=== PATIENT | male | born 1955 | race Caucasian/White ===

== ENCOUNTER 2016-06-10 19:31 | Emergency (ER) | payer OTHER ==
[2016-06-10 19:42] VITALS: BP 148/104; PULSE 85; TEMP 98.1; BMI 27.2
[2016-06-10 20:12] LABS: URINE APPEARANCE CLEAR; URINE BILIRUBIN NEGATIVE (NEGATIVE); URINE BLOOD NEGATIVE (NEGATIVE); URINE COLOR LTYELLOW; URINE GLUCOSE (UA) NEGATIVE (NEGATIVE); URINE KETONE TRACE (NEGATIVE); URINE LEUK ESTERASE TRACE (NEGATIVE); URINE NITRITE NEGATIVE (NEGATIVE); URINE PROTEIN 1+ (NEGATIVE); URINE UROBILINOGEN NEGATIVE E.U./dl (0.2-1.0)
[2016-06-10 20:16] LABS: CALCIUM OXALATE CRYSTALS MODERATE /hpf (NONE SEEN); URINE HYALINE CAST 1 /lpf; URINE MUCUS RARE; URINE RBC <1 /hpf (0-3); URINE WBC 2 /hpf (3-5)
--- NOTE | 2016-06-10 20:29 | PDOC ---
History of Present Illness - General Chief Complaint: Pain, Acute Stated Complaint: PAIN, ACUTE Time Seen by Provider: 06/10/16 19:46 History Source: Patient Exam Limitations: No Limitations - History of Present Illness Initial Comments: 06/10/16 20:23 60yo Male Patient w/ PmHx: Diverticulitis, Renal Colic, DM presents to ED c/o left flank pain. Patient states this symptom is ongoing on a daily basis. "It comes and goes." Patient describes pain as a burning sensation from his back down the anterior aspect of his left leg. He also states some positions make it worse, and some better. He saw his PCP last week and was told to take Tylenol for pain. Patient works as a visiting nurse, and does a lot of commuting throughout the city. He denies n/v/d, fever, CP, Abd pain, Diff breathing, rash , or any other complaints at this time. PCP- Dr. Waters Occurred: reports: other (Ongoing- Worse today.) Severity: reports: mild Pain Location: reports: back Method of Injury: No: unknown, assault, direct blow, fall, motor vehicle crash, other Modifying Factors: improves with: pain medication Past History - Travel Traveled outside of the country in the last 30 days: No Close contact w/someone who was outside of country & ill: No - Past Medical History Allergies/Adverse Reactions: Allergies Allergy/AdvReac Type Severity Reaction Status Date / Time propofol Allergy Verified 06/10/16 19:38 Home Medications: Ambulatory Orders Cyclobenzaprine HCl [Flexeril 10 mg] 10 mg PO TID PRN #30 tablet 06/10/16 Lidocaine 5% Patch [Lidoderm Patch -] 1 patch TP DAILY #1 box 06/10/16 Tramadol HCl 50 mg PO Q8H PRN #9 tablet MDD 3 tabs 06/10/16 Diabetes: Yes Other medical history: kidney stones, diverticulitis - Surgical History Appendectomy: Yes - Psycho/Social/Smoking Cessation Hx Suicidal Ideation: No Smoking History: Never smoked Trauma Specific PMHX - Complaint Specific PMHX Arthritis: No Back Injury: No Neck Injury: No Hx Sacro Iliac Joint Dysfunction: No Review of Systems - Review of Systems Able to Perform ROS?: Yes Is the patient limited Vietnamese proficient: No Constitutional: No: Chills, Fever, Malaise, Night Sweats, Weakness HEENTM: No: Blurred Vision, Double Vision, Nose Congestion, Throat Pain, Difficulty Swallowing, Mouth Swelling Respiratory: No: Cough, Stridor, Wheezing Cardiac (ROS): No: Chest Pain, Lightheadedness, Palpitations, Syncope ABD/GI: No: Diarrhea, Nausea, Poor Appetite, Poor Fluid Intake, Vomiting : No: Burning, Dysuria, Discharge, Flank Pain, Hematuria Musculoskeletal: No: Back Pain Integumentary: No: Erythema, Rash Neurological: No: Headache, Paresthesia, Seizure, Weakness All Other Systems: Reviewed and Negative *Physical Exam - Vital Signs Last Vital Signs Temp Pulse Resp BP Pulse Ox 98.1 F 85 18 148/104 99 06/10/16 19:38 06/10/16 19:38 06/10/16 19:38 06/10/16 19:38 06/10/16 19:38 - Physical Exam General Appearance: Yes: Nourished, Appropriately Dressed. No: Apparent Distress, Mild Distress, Moderate Distress, Severe Distress HEENT: positive: EOMI, HERBERT, Normal ENT Inspection, Normal Voice, Symmetrical, TMs Normal, Pharynx Normal. negative: Pharyngeal Erythema, Tonsillar Exudate, Nasal Congestion, Rhinorrhea, TM Bulging, TM Dull, TM Erythema Neck: positive: Trachea midline, Supple. negative: Rigid, Decreased range of motion, Stridor, Lymphadenopathy (R), Lymphadenopathy (L) Respiratory/Chest: positive: Lungs Clear, Normal Breath Sounds. negative: Respiratory Distress, Accessory Muscle Use, Labored Respiration, Rapid RR, Decreased Breath Sounds, Stridor, Wheezing Cardiovascular: positive: Regular Rhythm, Regular Rate. negative: Edema, JVD, Murmur Gastrointestinal/Abdominal: positive: Normal Bowel Sounds, Soft. negative: Distended, Guarding, Rebound, Tenderness, Hernia Musculoskeletal: positive: Normal Inspection. negative: CVA Tenderness, Decreased Range of Motion, Muscle Spasm, Vertebral Tenderness Extremity: positive: Normal Capillary Refill, Normal Inspection, Normal Range of Motion. negative: Pedal Edema, Swelling, Calf Tenderness Integumentary: positive: Normal Color, Dry, Warm Neurologic: positive: circulation man II-XII NML intact, Fully Oriented, Alert, Normal Mood/ Affect, Motor Strength /5 ED Treatment Course - ADDITIONAL ORDERS Additional order review: Laboratory Results 06/10/16 19:40 Urine Color Ltyellow Urine Appearance Clear Urine pH 5.0 Ur Specific Mccamey 1.018 Urine Protein 1+ H Urine Glucose (UA) Negative Urine Ketones Trace H Urine Blood Negative Urine Nitrite Negative Urine Bilirubin Negative Urine Urobilinogen Negative Ur Leukocyte Esterase Trace H Urine RBC <1 Urine WBC 2 Calcium Oxalate Crystal Moderate Hyaline Casts 1 Urine Mucus Rare Progress Note - Progress Note Progress Note: Patient Search Multi-Patient Search Reports Drug Listing Designation My JAVIER Numbers Data Detail Level: Printer-Friendly View | Show Extended View Confidential Drug Utilization Report Search Terms: Reji Bertrand, 1955 Search Date: 06/10/2016 08:39:49 PM The Drug Utilization Report below displays all of the controlled substance prescriptions, if any, that your patient has filled in the last twelve months. The information displayed on this report is compiled from pharmacy submissions to the Department, and accurately reflects the information as submitted by the pharmacies. This report was requested by: Clayton Cavazos | Reference #: [id number] There are no results for the search terms that you entered. *DC/Admit/Observation/Transfer Diagnosis at time of Disposition: Back pain Qualifiers: Back pain location: low back pain Chronicity: acute Back pain laterality: left Sciatica presence: with sciatica Sciatica laterality: sciatica of left side Qualified Code(s): M54.42 - Lumbago with sciatica, left side - Discharge Dispostion Disposition: HOME Condition at time of disposition: Stable Admit: No - Prescriptions Prescriptions: Cyclobenzaprine HCl [Flexeril 10 mg] 10 mg PO TID PRN #30 tablet PRN Reason: Back Pain Lidocaine 5% Patch [Lidoderm Patch -] 1 patch TP DAILY #1 box Tramadol HCl 50 mg PO Q8H PRN #9 tablet MDD 3 tabs PRN Reason: Severe back pain - Referrals Referrals: STAFF,NOT ON [Primary Care Provider] - Dony Bethea MD [Staff Physician] - - Patient Instructions Printed Discharge Instructions: DI for Low Back Pain, Exercise May Reduce Risk of Low Back Pain Additional Instructions: FOLLOW UP WITH DR. BETHEA (ORTHOPEDIC) FOR FURTHER EVALUATION. TAKE MEDICATIONS PRESCRIBED. DO NOT DRIVE, DRINK ALCOHOL, OR OPERATE HEAVY MACHINERY WHILE TAKING TRAMADOL. APPLY WARM COMPRESS TO AFFECTED AREA NEEDED FOR COMFORT. RETURN IF ANY CONCERNS FOR FURTHER EVALUATION. Print Language: JAPANESE
== END 2016-06-10 20:53 | disposition home or self-care (01) ==
LOC: JER 19:31
DX: M54.42 Lumbago with sciatica, left side (principal); E11.9 Type 2 diabetes mellitus without complications
CPT/HCPCS: 81003; 81015; 99282-25

== ENCOUNTER 2019-05-03 19:20 | Emergency (ER) | payer OTHER ==
[2019-05-03 19:37] VITALS: BP 178/95; PULSE 101; TEMP 99.1; BMI 24.5
--- NOTE | 2019-05-03 21:01 | PDOC ---
History of Present Illness - General Chief Complaint: Pain Stated Complaint: MUSCLE PAIN/WEIGHT LOSS - History of Present Illness Initial Comments: The pt is a 63M w/ a history of HTN, NIDDM who presents for evaluation of 1 month of left sided chest pain and general aches. Also reports scratchy throat with generalized malaise. He states he was diagnosed with influenza 3 weeks ago. Was diagnosed with strep throat 2 weeks ago, took most of his abx but not all because he started to feel better. Additionally, he reports 15lbs weight loss over 2 months. He has been seen at another hospital and by his PCP for similar complaints. Pt has results showing neg HIV, GC/chlamydia, HCV. Pt states he has been trying to lose some weight but didn't think he'd lose this much this fast. Chest pain is left sided, intermittent, only associated with movement/strain but is not exertional or positional 05/03/19 21:01 Past History - Past Medical History Allergies/Adverse Reactions: Allergies Allergy/AdvReac Type Severity Reaction Status Date / Time propofol Allergy Verified 05/03/19 19:30 Home Medications: Ambulatory Orders Cyclobenzaprine HCl [Flexeril 10 mg] 10 mg PO TID PRN #30 tablet 06/10/16 Lidocaine 5% Patch [Lidoderm Patch -] 1 patch TP DAILY #1 box 06/10/16 Tramadol HCl 50 mg PO Q8H PRN #9 tablet MDD 3 tabs 06/10/16 COPD: No Diabetes: Yes HTN: Yes - Surgical History Appendectomy: Yes - Psycho Social/Smoking Cessation Hx Smoking History: Never smoked Review of Systems - Review of Systems Able to Perform ROS?: Yes Comments:: GENERAL/CONSTITUTIONAL: No fever or chills. No weakness HEAD, EYES, EARS, NOSE AND THROAT: No change in vision. No change in hearing CARDIOVASCULAR: +intermittent CP RESPIRATORY: Denies cough, hemoptysis GASTROINTESTINAL: No nausea, vomiting, diarrhea or constipation GENITOURINARY: No dysuria, frequency, or change in urination MUSCULOSKELETAL: +left chest wall pain; intermittent generalized aches SKIN: No rash NEUROLOGIC: No headache, vertigo, loss of consciousness, or change in strength/ sensation ENDOCRINE: No increased thirst. No abnormal weight change HEMATOLOGIC/LYMPHATIC: No anemia, easy bleeding, or history of blood clots ALLERGIC/IMMUNOLOGIC: No hives or skin allergy 05/03/19 21:01 Is the patient limited Spanish proficient: No *Physical Exam - Vital Signs Last Vital Signs Temp Pulse Resp BP Pulse Ox 99.1 F 101 H 18 178/95 H 99 05/03/19 19:28 05/03/19 19:28 05/03/19 19:28 05/03/19 19:28 05/03/19 19:28 - Physical Exam GENERAL: Awake, alert, and oriented to person/place/time, in no acute distress HEAD: No signs of trauma, normocephalic, atraumatic EYES: PERRLA, EOMI, sclera anicteric, conjunctiva clear ENT: Hearing grossly normal, nares patent, oropharynx clear without exudates. Moist mucosa LUNGS: No distress, speaks in full sentences, clear to auscultation bilaterally CHEST: No chest wall TTP, no rash HEART: Regular rate and rhythm, normal S1 and S2, no murmurs appreciated, peripheral pulses normal and equal bilaterally ABDOMEN: Soft, nontender, normoactive bowel sounds. No guarding, no rebound. EXTREMITIES: Normal inspection, Normal range of motion, no edema. No clubbing or cyanosis NEUROLOGICAL: Cranial nerves II through XII grossly intact. Normal speech, normal gait, no focal sensorimotor deficits SKIN: Warm, Dry 05/03/19 21:01 Heart Score/ECG Review - History History: Slightly suspicious - Electrocardiogram EKG: Normal - Age Age: 45-65 - Risk Factors Risk Factors Heart Score: Yes Hx Hypertension, Yes Hx Diabetes Based on the list above the patient has:: 1-2 risk factors - Troponin Troponin: </= normal limit - Score Heart Score - Total: 2 ED Treatment Course - LABORATORY CBC & Chemistry Diagram: 05/03/19 21:38 05/03/19 21:38 Medical Decision Making - Medical Decision Making The pt is a 63M w/ a history of HTN, NIDDM who presents for evaluation of 1 month of generalized aches, sore throat, CP ED Course CMP, CBC, Trop I ECG CXR ECG w/ NSR; HR 99; QTc 441; no axis deviation; no JUNAID 05/03/19 22:20 Trop I neg CK wnl Lytes unremarkable No AHSAN LFTs wnl CXR w/o acute pathology, ED faculty read No anemia Repeat HR and O2 99 and 98% respectively Leukocytosis noted -Pt denies any infectious symptoms -Recent w/u including HIV, GC/chlamydia, syphilis provided by pt -Recent labs at [facility] -Pt a febrile Plan for D/C w/ PCP f/u Need for f/u and possible further w/u emphasized Discharge instructions and return precautions given Patient in agreement and verbalized understanding Dispo: Home 05/03/19 23:18 Discharge - Discharge Information Problems reviewed: Yes Clinical Impression/Diagnosis: Chest pain Qualifiers: Chest pain type: unspecified Qualified Code(s): R07.9 - Chest pain, unspecified Leukocytosis Qualifiers: Leukocytosis type: unspecified Qualified Code(s): D72.829 - Elevated white blood cell count, unspecified Condition: Stable Disposition: HOME - Admission No - Follow up/Referral Referrals: ON STAFF,NOT [Primary Care Provider] - [facility] [place] [Provider Group] - Patient Discharge Instructions Patient Printed Discharge Instructions: DI for Chest Pain, DI for Leukocytosis Additional Instructions: You were seen in the Emergency Department for evaluation. Your labs were notable for a elevated white blood cell count. Your other labs and imaging were unremarkable. Take your labs results to your primary care physician. Follow up with them within a week. Review the handout provided at discharge. For pain you may take Tylenol 650mg every 6 hours and Ibuprofen 600mg every 6-8 hours, alternating them each time. Return to the Emergency Department if you develop fevers, changing/worsening chest pain, trouble breathing, worsening pain, change in sensation, worsening symptoms, or any new/concerning symptoms. - Post Discharge Activity Work/Back to School Note: Back to Work
[2019-05-03] MEDS ORDERED: ACETAMINOPHEN 325 MG TABLET (FP) PO ONE (21:26)
[2019-05-03] MEDS ORDERED: LIDOCAINE 5% TOPICAL PATCH TP ONE (21:26)
--- NOTE | 2019-05-03 21:34 | PDOC ---
Attending Attestation - Resident Resident Name: Toby Ann - ED Attending Attestation I have performed the following: I have examined & evaluated the patient, The case was reviewed & discussed with the resident, I agree w/resident's findings & plan, Exceptions are as noted - HPI HPI: 05/03/19 21:33 63-year-old male presents because of aching joints, 15 pound weight loss over the past 2 months and some positional achiness and left chest pain that increases with movement HPI he has been followed by his primary care physician and has had labs done to try to address these complaints, STD work-up was negative - Physicial Exam PE: 05/03/19 21:34 wnwd 63 yo male p/w with intermittent complaints of 2 months of achy joints, weight loss and positional chest pain head ncat eyes rosalio eomi neck supple lungs cta b/l cvs [id number] abd nontender extremities no swelling to joints, no erythema skin warm and dry neuro axox3,ambulatory - Medical Decision Making 05/04/19 00:17 Patient does have a past medical history of hypertension and type 2 diabetes Other than his glucose which is slightly bumped, his chemistries were unremarkable In reviewing CBC he does have a leukocytosis but he has no objective fever or chills or nausea or vomiting or cough chest pain or abdominal pain Patient troponin was negative, EKG was Normal sinus rhythm at 99 bpm, QTC 441 ms Patient stated that he also had a leukocytosis the last time his labs were drawn in the PCPs office Patient will follow-up with his primary care provider for further evaluation 05/04/19 00:20
[2019-05-03] MEDS ORDERED: ACETAMINOPHEN 1000 MG/100 ML VIAL (NON FORMULARY) IVPB ONE (21:44)
[2019-05-03] MEDS ORDERED: LIDOCAINE 5% TOPICAL PATCH ONE ×2 (21:46→21:47)
[2019-05-03] MEDS ORDERED: ACETAMINOPHEN INJECTION 100 ML IVPB ONE (21:46)
[2019-05-03] MEDS ORDERED: LIDOCAINE PATCH REMOVAL MC SCH (22:00)
[2019-05-03 22:02] LABS: BASO % 0.3 % (0-2.0); EOS % 0.5 % (0-4.5); HEMATOCRIT 37.3 % (35.4-49); HEMOGLOBIN 12.4 GM/dL (11.7-16.9); LYMPH % 10.3 % (8-40); MCH 27.1 pg (25.7-33.7); MCHC 33.3 g/dl (32.0-35.9); MEAN CELL VOLUME 81.4 fl (80-96); MEAN PLT VOLUME 9.5 fl (7.5-11.1); MONO % 5.9 % (3.8-10.2); PLATELET COUNT 341 K/MM3 (134-434); RBC 4.57 M/mm3 (4.00-5.60); RDW 13.7 % (11.9-15.9); WHITE BLOOD COUNT 21.5 K/mm3 (4.0-10.0)
[2019-05-03 22:34] LABS: ALBUMIN 3.2 g/dl (3.4-5.0); BILIRUBIN,TOTAL 0.6 mg/dL (0.2-1); BLOOD UREA NITROGEN 14.1 mg/dL (7-18); CALCIUM 9.1 mg/dL (8.5-10.1); CREATININE 0.9 mg/dL (0.55-1.3); POTASSIUM 4.2 mmol/L (3.5-5.1); TOT PROT 7.6 g/dl (6.4-8.2)
[2019-05-03 22:46] LABS: PLATELET ESTIMATE ADEQUATE
--- NOTE | 2019-05-04 17:06 | EKG ---
Test Reason : Blood Pressure : / mmHG Vent. Rate : 099 BPM Atrial Rate : 099 BPM P-R Int : 130 ms QRS Dur : 092 ms QT Int : 344 ms P-R-T Axes : 045 030 041 degrees QTc Int : 441 ms NORMAL SINUS RHYTHM NORMAL ECG NO PREVIOUS ECGS AVAILABLE Confirmed by ROSE MOSES MD ([id number]) on 05/04/2019 5:06:05 PM Referred By: Confirmed By:ROSE MOSES MD
== END 2019-05-03 23:29 | disposition home or self-care (01) ==
LOC: JER 19:20
PROC: 3E033NZ Introduction of Analgesics, Hypnotics, Sedatives into Peripheral Vein, Percutaneous Approach (ICD-10-PCS; principal; 2019-05-03)
DX: R07.9 Chest pain, unspecified (principal); D72.829 Elevated white blood cell count, unspecified; I10 Essential (primary) hypertension; E11.9 Type 2 diabetes mellitus without complications; Z79.84 Long term (current) use of oral hypoglycemic drugs; Z88.8 Allergy status to other drugs, medicaments and biological substances
CPT/HCPCS: 36415; 71046-TC-FY; 80053; 82550; 84484; 85025; 87070; 87804; 87880; 93005; 93010; 99285-25; J0131